=== PATIENT | female | born 1950 | race Caucasian/White ===

== ENCOUNTER 2016-07-22 16:21 | Emergency (ER) | payer OTHER ==
[2016-07-22 16:51] LABS: BASOPHILS 0.5 % (0.0-2.0); EOSINOPHILS 1.6 % (0.0-6.0); EOSINOPHILS# 0.1 X 10^3uL (0.0-0.4); HEMOGLOBIN 14.7 g/dL (12.0-16.0); LYMPHOCYTES 48.3 % (20.0-40.0); LYMPHOCYTES# 4.4 X 10^3uL (0.8-3.8); MEAN CELL VOLUME 92.7 fL (84.0-102.0); MEAN CORPUS. HGB CONCENTRATION 34.2 g/dL (32.0-36.0); MEAN CORPUSCULAR HEMOGLOBIN 31.7 pg (29.0-35.0); MEAN PLATELET VOLUME 8.6 fL (7.4-10.4); MONOCYTES 6.9 % (2.0-10.0); MONOCYTES# 0.6 X 10^3uL (0.2-1.0); NEUTROPHILS 42.7 % (54.0-75.0); NEUTROPHILS# 3.8 X 10^3uL (2.6-6.7); PLATELET COUNT 238 X 10^3uL (130-440); RED BLOOD COUNT 4.64 X 10^6uL (4.20-6.10); RED CELL DISTRIBUTION WIDTH 12.7 % (11.5-14.5); WHITE BLOOD COUNT 8.9 X 10^3uL (3.9-10.7)
[2016-07-22 17:02] LABS: BLOOD UREA NITROGEN 21 mg/dL (7-17); CALCIUM 9.1 mg/dL (8.4-10.2); CHLORIDE 106 mmol/L (98-107); CREATININE 1.1 mg/dL (0.5-1.0); EST GLOMERULAR FILTRATION RATE 52 mL/min; GLUCOSE 124 mg/dL (70-100); MAGNESIUM 1.9 mg/dL (1.6-2.3); POTASSIUM 4.1 mmol/L (3.5-5.1); SODIUM 140 mmol/L (137-145)
[2016-07-22 17:21] LABS: TROPONIN I < 0.012 ng/mL (0.00-0.034)
--- NOTE | 2016-07-22 18:56 | ER PHYSICIAN DOCUMENTATION ---
Physician Documentation [facility] Name:Mimi Webb Age:66 yrs Sex:Female :1950 Arrival Date:07/22/2016 Time:16:21 BedTrauma C Private MD:Vika Reyes ED, John Disposition: 07/22/16 18:46 Discharged to Home/Self Care. Impression: Premature Ventricular Contractions (PVC). - Condition is Good. - Discharge Instructions: Arrhythmia - PALPITATIONS. - Medical Reconciliation form form. - Follow up: Syd Meade MD; When: Tomorrow; Reason: Continuance of care. - Problem is new. - Symptoms are unchanged. HPI: 07/22 16:46 This 66 yrs old Female presents to ER via Walk In with complaints of jm Irregular Pulse. 16:46 The patient presents with a history of irregular heart beat. Context: The symptoms jm occur at rest. Onset: The symptom(s)/episode began/occurred 2 week(s) ago, and became persistent this morning. Duration: The patient or guardian reports a single episode, that is still ongoing. Modifying factors: The symptoms are alleviated by nothing. Associated signs and symptoms: Pertinent positives: lightheadedness, Pertinent negatives: chest pain, cough, fever, nausea, near-syncope, vomiting. Severity of symptoms: in the emergency department the symptoms are unchanged. The patient has not experienced similar symptoms in the past. The patient has not recently seen a physician. Pt noted irregular HR today that was consistently there, but for the past 2 weeks it has been in and out. She denies SOB or CP. She drinks about 3 cups of coffee in the AM, but has been very stressed out with work. She denies any drug use. . Historical: - Allergies: No known drug Allergies; - Home Meds: 1. Atenolol Oral 2. Synthroid Oral - PMHx: HYPOTHYROIDISM; HYPERTENSION; - PSHx: HIP SURGERY; Appendectomy; THYROIDECTOMY; - Tetanus: < 10 years. - Ebola Screening: : Patient denies exposure to infectious person. Patient denies travel to an Ebola-affected area in the 21 days before illness onset. . - Social history: Smoking status: Patient states was never smoker of tobacco. Patient/guardian denies using alcohol, marijuana. ROS: 16:50 Constitutional: Negative for fatigue, fever, malaise. 16:50 Eyes: Negative for blurry vision. 16:50 ENT: Negative for sinus congestion, sinus pain. 16:50 Cardiovascular: Positive for palpitations, Negative for chest pain. 16:50 Respiratory: Negative for cough, shortness of breath. 16:50 Abdomen/GI: Negative for abdominal pain, nausea, vomiting, diarrhea. 16:50 MS/extremity: Negative for swelling, tenderness. 16:50 Skin: Negative for diaphoresis, rash, swelling. 16:50 Neuro: Positive for dizziness, Negative for syncope, near syncope. 16:50 Psych: Negative for anxiety, depression, drug dependence, alcohol dependence. 16:50 All other systems are negative. Exam: 16:56 Constitutional: The patient appears alert, awake. 16:56 Eyes: Periorbital structures: appear normal, Pupils: equal, round, and reactive to light and accomodation. 16:56 ENT: Mouth: is normal, Voice: is normal. 16:56 Cardiovascular: Rate: bradycardic, Rhythm: irregular, Pulses: no pulse deficits are appreciated. 16:56 Respiratory: Respirations: normal, Breath sounds: are normal. 16:56 Abdomen/GI: Bowel sounds: normal, Palpation: abdomen is soft and non-tender. 16:56 Musculoskeletal/extremity: DVT Exam: No signs of deep vein thrombosis. Calves: are non-tender. 16:56 Skin: Appearance: Color: pink, no rash present. 16:56 Neuro: Mentation: is normal, Memory: is normal. 16:56 Psych: Behavior/mood is pleasant, Affect is calm. Vital Signs: 16:38 BP 171 / 67; Pulse 48; Resp 18; Pulse Ox 93% on R/A; Pain 0/10; st 16:56 BP 151 / 71; Pulse 94; Resp 22; Pulse Ox 89% ; lb 16:57 Temp 97.3; st 17:01 BP 146 / 56; Pulse 81; Resp 13; Pulse Ox 90% on R/A; lb 17:01 BP 158 / 66; Pulse 85; Resp 13; Pulse Ox 90% on R/A; lb 18:08 BP 154 / 62; Pulse 77; Resp 15; Pulse Ox 92% on R/A; lb 18:14 BP 148 / 55; Pulse 86; Resp 12; Pulse Ox 90% on R/A; lb 18:30 BP 145 / 54; Pulse 78; Resp 12; Pulse Ox 88% on R/A; lb MDM: 16:34 Patient medically screened. 16:[address] 16:56 Differential diagnosis: arrythmia, dehydration, stress disorder. Data reviewed: vital signs, nurses notes, old medical records, lab test result(s), EKG, radiologic studies, and as a result, I will initiate a consult, with a refrigerator car icer. 18:00 Medication response: The patient's symptoms are unchanged despite medication administration, lopressor. Physician consultation: Dr Julian regarding patient's condition, would like medications started. ED course: Pt w obvious bigeminy. Labs and CXR normal. I consulted Dr. Julian who said to try Lopressor 2.5mg IV and see if that helps. Unfortunately, it did not and pt really wants to go home. Dr. Reyes her PCP updated and will get her in to Cards tomorrow. . 07/22 16:55 Order name: CBC AUTO DIF, MDIF/RMOR IF IND; Complete Time: 17:29 [facility] 07/22 17:07 Order name: BASIC METABOLIC PANEL; Complete Time: 17:29 [facility] 07/22 17:07 Order name: MAGNESIUM; Complete Time: 17:29 [facility] 07/22 17:21 Order name: TROPONIN I; Complete Time: 17:29 [facility] 07/22 16:35 Order name: 12-lead EKG; Complete Time: 16:39 07/22 16:35 Order name: Iv Saline Lock; Complete Time: 16:51 07/22 16:35 Order name: Place Patient On Monitor; Complete Time: 16:39 07/22 16:35 Order name: Pulse Ox Continuous; Complete Time: 16:39 Dispensed Medications: 18:08 Drug: Metoprolol 2.5 mg; Route: IVP; Site: right antecubital; st 18:55 Follow up: Response: heart rate got better. st Signatures: Perlita Parmar, RN Oscar Martinez MD MD jm
--- NOTE | 2016-07-22 18:56 | ER NURSING DOCUMENTATION ---
Nurse's Notes [facility] Name:Mimi Webb Age:66 yrs Sex:Female :1950 Arrival Date:07/22/2016 Time:16:21 BedTrauma C Private MD:Vika Reyes Diagnosis:Premature Ventricular Contractions (PVC) Presentation: 07/22 16:35 Presenting complaint: Patient states: pt states she has been in and out of an irregular st heart beet for two weeks and has had it all day today. pt denies any pain or SOB with this. Transition of care: patient was not received from another setting of care. Care prior to arrival: None. 16:35 Acuity: NIKITA 3 st 16:35 Method Of Arrival: Walk In st Triage Assessment: 16:37 General: Appears in no apparent distress, Behavior is cooperative. Pain: Denies pain. st Cardiovascular: Capillary refill < 3 seconds Heart tones present Pulses are all present. Reports dizziness with standing. Denies Nausea and SOB Rhythm is Bigeminy. Respiratory: No deficits noted. GI: No deficits noted. Historical: - Allergies: No known drug Allergies; - Home Meds: 1. Atenolol Oral 2. Synthroid Oral - PMHx: HYPOTHYROIDISM; HYPERTENSION; - PSHx: HIP SURGERY; Appendectomy; THYROIDECTOMY; - Tetanus: < 10 years. - Ebola Screening: : Patient denies exposure to infectious person. Patient denies travel to an Ebola-affected area in the 21 days before illness onset. . - Social history: Smoking status: Patient states was never smoker of tobacco. Patient/guardian denies using alcohol, marijuana. Screenin:38 Infectious Disease Risk None. Abuse screen: Denies threats or abuse. Denies injuries st from another. pt feels safe at home. Nutritional screening: No deficits noted. Assessment: 18:40 General: pt resting quietly pt is still in bigeminy rate is a little. . st Vital Signs: 16:38 BP 171 / 67; Pulse 48; Resp 18; Pulse Ox 93% on R/A; Pain 0/10; st 16:56 BP 151 / 71; Pulse 94; Resp 22; Pulse Ox 89% ; lb 16:57 Temp 97.3; st 17:01 BP 146 / 56; Pulse 81; Resp 13; Pulse Ox 90% on R/A; lb 17:01 BP 158 / 66; Pulse 85; Resp 13; Pulse Ox 90% on R/A; lb 18:08 BP 154 / 62; Pulse 77; Resp 15; Pulse Ox 92% on R/A; lb 18:14 BP 148 / 55; Pulse 86; Resp 12; Pulse Ox 90% on R/A; lb 18:30 BP 145 / 54; Pulse 78; Resp 12; Pulse Ox 88% on R/A; lb ED Course: 16:22 Patient arrived in ED. ama 16:22 Vika Reyes DO is Private Physician. ama 16:28 EKG done per protocol. Performed by ED Staff. Shown to ED physician. st 16:35 Oscar Merchant MD is Attending Physician. al 16:35 Perlita Parmar RN is Primary Nurse. st 16:[address] 16:38 Valuables Remains with patient Patient has correct armband on for positive st identification. Placed in gown. Bed in low position. Call light in reach. Side rails up X 1. inspector set up and lay out on. Pulse ox on. NIBP on. Warm blanket given. 16:46 Inserted peripheral IV: 20 gauge in right antecubital area and blood collected. st 16:47 Patient moved to radiology. pm1 16:[address] 16:54 Patient moved back from radiology. pm1 18:09 Assisted to bathroom. pt did not get dizzy with this getting up. st 18:46 Syd Meade MD is Referral Physician. al Administered Medications: 18:08 Drug: Metoprolol 2.5 mg; Route: IVP; Site: right antecubital; st 18:55 Follow up: Response: heart rate got better. st Outcome: 18:46 Discharge ordered by . al 18:54 Discharged to home ambulatory. st 18:54 Condition: stable 18:54 Discharge instructions given to patient, Instructed on discharge instructions, follow up and referral plans. 18:55 Patient [address] ED. st 07/23 09:10 Discharge F/U Call: Unable to reach: no answer st 14:50 Discharge F/U Call: Spoke with: patient. Have you made a f/u appointment? yes What is st the one thing you feel we could do to improve? Patient's answer: pt is do ok today. She has followed up with cardiology and has a Holter monitor now. Signatures: Perlita Parmar, Oscar Martinez RN, MD MD jm McBride, Philisha pm1 Ernst Brewster, Jessie Interiano
--- NOTE | 2016-07-23 08:14 | RADIOLOGY REPORT ---
EXAM:CXR 2V [id number] INDICATION: Chest pain and irregular pulse. COMPARISON:None TECHNIQUE:PA and lateral radiographs were obtained. FINDINGS: The heart and mediastinum are normal. Central airways appear unremarkable. The lungs are cl ear. There are no pleural effusions. The chest wall is intact. There is no pneumothorax. IMPRESSION:Negative chest. Final Electronic Signature: This report was electronically signed by Eliseo Moreno MD on 07/23/2016 8:12 AM. [email or web address] /
== END 2016-07-22 18:56 | disposition home or self-care (01) ==
LOC: ER 16:21
DX: I49.3 Ventricular premature depolarization (principal); R42 Dizziness and giddiness; I10 Essential (primary) hypertension; E03.9 Hypothyroidism, unspecified; Z79.899 Other long term (current) drug therapy
CPT/HCPCS: 71020; 80048; 83735; 84484; 85025; 93005; 96374; 99285

== ENCOUNTER 2016-11-11 11:07 | Observation (INO) | payer OTHER ==
[2016-11-11 11:24] LABS: BASOPHIL# 0.1 X 10^3uL (0.0-0.1); BASOPHILS 0.3 % (0.0-2.0); EOSINOPHILS 0.7 % (0.0-6.0); EOSINOPHILS# 0.1 X 10^3uL (0.0-0.4); HEMATOCRIT 38.1 % (36.0-48.0); HEMOGLOBIN 13.1 g/dL (12.0-16.0); LYMPHOCYTES 16.7 % (20.0-40.0); MEAN CELL VOLUME 92.3 fL (80.0-100.0); MEAN CORPUS. HGB CONCENTRATION 34.3 g/dL (32.0-36.0); MEAN CORPUSCULAR HEMOGLOBIN 31.7 pg (29.0-35.0); MEAN PLATELET VOLUME 7.5 fL (7.4-10.4); MONOCYTES 7.4 % (2.0-10.0); MONOCYTES# 1.3 X 10^3uL (0.2-1.0); NEUTROPHILS 74.9 % (54.0-75.0); NEUTROPHILS# 13.2 X 10^3uL (2.6-6.7); RED BLOOD COUNT 4.13 X 10^6uL (4.20-6.10); RED CELL DISTRIBUTION WIDTH 12.7 % (11.5-14.5); WHITE BLOOD COUNT 17.7 X 10^3uL (3.9-10.7)
[2016-11-11 11:30] LABS: PLATELET COUNT 675 X 10^3uL (130-440)
[2016-11-11 11:31] LABS: BLOOD UREA NITROGEN 27 mg/dL (7-17); CALCIUM 9.2 mg/dL (8.4-10.2); CHLORIDE 98 mmol/L (98-107); EST GLOMERULAR FILTRATION RATE 59 mL/min; GLUCOSE 134 mg/dL (70-100); MAGNESIUM 2.3 mg/dL (1.6-2.3); POTASSIUM 4.1 mmol/L (3.5-5.1); SODIUM 140 mmol/L (137-145)
[2016-11-11 11:43] LABS: TROPONIN I < 0.012 ng/mL (0.00-0.034)
[2016-11-11 12:41] LABS: URINE APPEARANCE CLEAR; URINE COLOR YELLOW; URINE MUCUS NONE SEEN (Up to 25%); URINE RBC NONE SEEN (0-5/hpf)
--- NOTE | 2016-11-11 12:41 | RADIOLOGY REPORT ---
A limited single portable view of the chest is compared with prior film dated . The heart and vessels are stable and unremarkable. The right lung field is clear. A small amount of left pleural fluid is noted. No infiltrate or pneumothorax is seen. IMPRESSION: Small amount of left pleural fluid. MTDD
[2016-11-11 12:42] LABS: URINE BILIRUBIN NEGATIVE (NEGATIVE); URINE BLOOD NEGATIVE (NEGATIVE); URINE GLUCOSE NORMAL (NEGATIVE); URINE KETONE NEGATIVE (NEGATIVE); URINE LEUKOCYTE ESTERASE 25 WBC/uL (1+) (NEGATIVE); URINE NITRITE NEGATIVE (NEGATIVE); URINE PROTEIN NEGATIVE (NEG - TRACE); URINE SPECIFIC GRAVITY < or = 1.005 (0.001-1.035); URINE UROBILINOGEN 0.2mg/dL (Normal) (NEG-1mg/dL)
[2016-11-11 12:46] LABS: URINE BACTERIA NONE SEEN (<10/hpf); URINE WBC 0-4/hpf (0-4/hpf)
[2016-11-11] MEDS ORDERED: HOME MEDICATION LIST NEEDED 1 EA EACH MC ONE (13:28)
[2016-11-11] MEDS ORDERED: MAGNESIUM HYDROXIDE 30 ML UDC PO PRN (13:28)
[2016-11-11] MEDS ORDERED: POTASSIUM CHLORIDE/NS 1,000 MEQ/50,000 ML BAG IV SCH (14:00)
--- NOTE | 2016-11-11 15:15 | ER PHYSICIAN DOCUMENTATION ---
Physician Documentation [facility] Name:Mimi Webb Age:66 yrs Sex:Female :1950 Arrival Date:11/11/2016 Time:11:07 BedTrauma-C Private MD:Vika Reyes ED, Scott Disposition: 11/11/16 13:43 Admit ordered for Vika Reyes. Preliminary diagnosis are Atrial Fibrillation, Leukocytosis- Unspecified, Aortic Dissection. - Bed requested for Medical/Surgical. - Condition is Fair. - Problem is an acute exacerbation. - Symptoms have improved. 23 HR OBS Yes HPI: 11/11 11:54 This 66 yrs old Female presents to ER via Private Vehicle with complaints of sc palpitations. 12:20 The patient presents with a history of irregular heart beat, heart racing. Context: The sc symptoms occur at rest. Onset: The symptom(s)/episode began/occurred yesterday. Duration: The patient or guardian reports multiple episodes, that wax and wane. Associated signs and symptoms: Pertinent positives: chest pain, SOB. Severity of symptoms: At their worst the symptoms were moderate. The patient has not experienced similar symptoms in the past. recent ablation, aortic dissection, two icu admits, and overdose of her daughter. Historical: - Allergies: No known drug Allergies; - Home Meds: 1. hydrochlorothiazide 25 mg oral tab 1 tab once daily 2. lisinopril 20 mg oral tab 1 tab once daily 3. metoprolol tartrate 100 mg oral tab 1 tab 2 times per day 4. flecainide 50 mg oral tab 2 tabs every 12 hours - PMHx: PVC's; AROTIC DISECTION; CYSTIC THYROID; - PSHx: HIP SURGERY; HEART ABLATION; THYROIDECTOMY; - Tetanus: < 10 years. - Ebola Screening: : Patient negative for fever greater than or equal to 101.5 degrees Fahrenheit, and additional compatible Ebola Virus Disease symptoms. - Immunization history: Flu Vaccine < 1 year. - Social history: Smoking status: Patient states was never smoker of tobacco. ROS: 12:22 Constitutional: Negative for fever, chills, and weight loss. sc Eyes: Negative for injury, pain, redness, and discharge. ENT: Negative for injury, pain, and discharge. Neck: Negative for injury, pain, and swelling. Abdomen/GI: Negative for abdominal pain, nausea, vomiting, diarrhea, and constipation. Back: Negative for injury and pain. MS/Extremity: Negative for injury and deformity. Skin: Negative for injury, rash, and discoloration. 12:22 Neuro: Negative for headache, weakness, numbness, tingling, and seizure. sc 12:22 Cardiovascular: Positive for chest pain, palpitations. 12:22 Respiratory: Positive for shortness of breath. Exam: Constitutional: This is a well developed, well nourished patient who is awake, alert, and in no acute distress. Head/Face: Normocephalic, atraumatic. Eyes: Pupils equal round and reactive to light, extra-ocular motions intact. Lids and lashes normal. Conjunctiva and sclera are non-icteric and not injected. Cornea within normal limits. Periorbital areas with no swelling, redness, or edema. ENT: Nares patent. No nasal discharge, no septal abnormalities noted. Tympanic membranes are normal and external auditory canals are clear. Oropharynx with no redness, swelling, or masses, exudates, or evidence of obstruction, uvula midline. Mucous membranes moist. Neck: Trachea midline, no thyromegaly or masses palpated, and no cervical lymphadenopathy. Supple, full range of motion without nuchal rigidity, or vertebral point tenderness. No meningismus. Chest/axilla: Normal chest wall appearance and motion. Nontender with no deformity. No lesions are appreciated. Abdomen/GI: Soft, non-tender, with normal bowel sounds. No distension or tympany. No guarding or rebound. No evidence of tenderness throughout. Back: No spinal tenderness. No costovertebral tenderness. Full range of motion. Skin: Warm, dry with normal turgor. Normal color with no rashes, no lesions, and no evidence of cellulitis. Neuro: Awake and alert, GCS 15, oriented to person, place, time, and situation. Cranial nerves II-XII grossly intact. Motor strength 5/5 in all extremities. Sensory grossly intact. Cerebellar exam normal. Normal gait. 12:23 Psych: Awake, alert, with orientation to person, place and time. Behavior, mood, and sc affect are within normal limits. 12:23 Cardiovascular: Rate: tachycardic, Rhythm: irregularly irregular, Pulses: Pulses are 2+ in right radial artery and left radial artery. 12:23 Respiratory: the patient does not display signs of respiratory distress, Respirations: normal, Breath sounds: are normal, clear throughout. Vital Signs: 11:15 BP 147 / 83; Pulse 124; Resp 16; Temp 98.0(O); Pulse Ox 95% on R/A; Weight 69.4 kg; rh Height 5 ft. 5 in. (165.10 cm); Pain 0/10; 11:30 BP 109 / 92; Pulse 124; Resp 16; Pulse Ox 94% on R/A; Pain 0/10; rh 12:00 BP 121 / 70; Pulse 95; Resp 16; Pulse Ox 93% on R/A; rh 13:00 BP 125 / 73; Pulse 100; Resp 17; Pulse Ox 96% on 1 lpm NC; Pain 0/10; rh 13:32 BP 122 / 74; Pulse 96; Resp 17; Pulse Ox 96% on 2 lpm NC; Pain 0/10; rh 14:36 BP 140 / 73; Pulse 77; Resp 14; Pulse Ox 98% on 2 lpm NC; rh 11:15 Body Mass Index 25.46 (69.40 kg, 165.10 cm) rh MDM: 11:24 Patient medically screened. ms 11:25 EKG attached ms1 12:23 Differential diagnosis: arrythmia, dehydration, stress disorder. Data reviewed: vital sc signs, nurses notes, diagnostic data from outside facility, old medical records, lab test result(s), EKG, radiologic studies, and as a result, I will continue to observe the patient. Counseling: I had a detailed discussion with the patient and/or guardian regarding: the historical points, exam findings, and any diagnostic results supporting the discharge/admit diagnosis, lab results, radiology results, the need for further work-up and treatment in the hospital, the need to transfer to another facility. Physician consultation: Vika Ryees DO was called at 12:24, was contacted at 12:24, regarding admission. Admission orders: after a detailed discussion of the patient's condition and case, the admit orders are written by me. 13:33 EKG attached sc1 13:41 ECG:. Medication response: The patient's symptoms have improved. ms 14:52 EKG attached sc1 11/11 11:31 Order name: CBC AUTO DIF, MDIF/RMOR IF IND; Complete Time: 11:55 [facility] 11/11 11:55 Interpretation: Abnormal: WHITE BLOOD COUNT 17.7; PLATELET COUNT 675. ms 06 11:44 Order name: BASIC METABOLIC PANEL; Complete Time: 11:55 EDMS 08 11:55 Interpretation: Normal. ms 11/11 11:44 Order name: MAGNESIUM; Complete Time: 11:55 EDMS 11/11 11:55 Interpretation: Normal. ms 11/11 11:44 Order name: TROPONIN I; Complete Time: 11:55 [facility] 11/11 11:55 Interpretation: Normal. ms 11/11 12:45 Order name: UA W/ MICRO -CULTURE IF IND; Complete Time: 13:43 [facility] 11/11 17:03 Order name: CBC AUTO DIF, MDIF/RMOR IF IND [facility] 11/11 17:38 Order name: FERRITIN [facility] 11/11 17:38 Order name: TROPONIN I [facility] 11/11 23:11 Order name: TROPONIN I [facility] 11/12 06:54 Order name: URINE CULTURE [facility] 11/12 07:03 Order name: BASIC METABOLIC PANEL [facility] 11/12 07:03 Order name: COMPREHENSIVE METABOLIC PANEL [facility] 11/12 07:03 Order name: MAGNESIUM [facility] 11/12 08:13 Order name: CBC AUTO DIF, MDIF/RMOR IF IND [facility] 11/12 16:40 Order name: BLOOD CULTURE [facility] 11/12 16:43 Order name: BLOOD CULTURE [facility] 11/11 14:51 Order name: CHEST; [place] [id number] [facility] 11/11 11:16 Order name: EKG - 12 Lead; Complete Time: 11:22 [facility] 11/11 11:16 Order name: Cardiac Monitoring - Continuous; Complete Time: 11:22 [facility] 11/11 11:16 Order name: Oxygen Sats; Complete Time: 11:22 [facility] 11/11 12:10 Order name: EKG - 12 Lead; Complete Time: 12:10 11/11 12:12 Order name: Oxygen; Complete Time: 12:12 rh EC:41 Rate is 112 beats/min. Rhythm is irregularly irregular, A fib. QRS Cozad is Normal. NC sc interval is normal. QRS interval is normal. QT interval is normal. No Q waves. T waves are Normal. No ST changes noted. Clinical impression: Atrial Fibrillation. Interpreted by me. Reviewed by me. Dispensed Medications: 11:22 Drug: NS 0.9% 1000 ml; Route: IV; Rate: bolus; Site: left antecubital; rh 12:00 Follow up: IV Status: Completed infusion; IV Intake: 1000ml rh 12:13 Drug: NS 0.9% 1000 ml; Route: IV; Rate: bolus; Site: left antecubital; rh 15:02 Follow up: IV Status: Completed infusion; IV Intake: 1000ml Signatures: Merissa Baugh RN RN [facility] Brandon Cleary MD MD [facility] Stacy rh
--- NOTE | 2016-11-11 15:15 | ER NURSING DOCUMENTATION ---
Nurse's Notes [facility] Name:Mimi Webb Age:66 yrs Sex:Female :1950 Arrival Date:11/11/2016 Time:11:07 BedTrauma-C Private MD:Vika Reyes Diagnosis:Atrial Fibrillation;Leukocytosis- Unspecified;Aortic Dissection Presentation: 11/11 11:09 Acuity: NIKITA 2 rh 11:09 Presenting complaint: Patient states: Pt has been feeling dizzy for a few days. This AM rh at 0600 she felt that her heart was irregular and faster than normal. She took her blood pressure and it was low - 80's/40's. Pt's dizziness worsened throughout the morning and so did her fatigue. Transition of care: Home. 11:09 Method Of Arrival: Private Vehicle Triage Assessment: 11:16 General: Appears in no apparent distress, Behavior is cooperative. General: Reports rh fatigue for >3 days. Pain: Denies pain. EENT: Oral mucosa is dry. Neuro: Level of Consciousness is awake, alert, obeys commands, Oriented to person, place, time, event. Cardiovascular: Capillary refill < 3 seconds Reports fatigue, lightheadedness, Denies syncope, Chest pain PT reports chest for a few days prior to today, it was substernal. Respiratory: Airway is patent Respiratory effort is even, unlabored, Respiratory pattern is regular, symmetrical, Breath sounds are clear bilaterally. Denies shortness of breath. GI: Abdomen is non- distended Abd is soft and non tender Denies nausea. : No deficits noted. Derm: Skin is intact, is healthy with good turgor, Skin is pink, warm & dry. Historical: - Allergies: No known drug Allergies; - Home Meds: 1. hydrochlorothiazide 25 mg oral tab 1 tab once daily 2. lisinopril 20 mg oral tab 1 tab once daily 3. metoprolol tartrate 100 mg oral tab 1 tab 2 times per day 4. flecainide 50 mg oral tab 2 tabs every 12 hours - PMHx: PVC's; AROTIC DISECTION; CYSTIC THYROID; - PSHx: HIP SURGERY; HEART ABLATION; THYROIDECTOMY; - Tetanus: < 10 years. - Ebola Screening: : Patient negative for fever greater than or equal to 101.5 degrees Fahrenheit, and additional compatible Ebola Virus Disease symptoms. - Immunization history: Flu Vaccine < 1 year. - Social history: Smoking status: Patient states was never smoker of tobacco. Screenin:24 Infectious Disease Risk None. Abuse screen: Denies threats or abuse. Denies injuries rh from another. Nutritional screening: No deficits noted. Assessment: 11:23 See Triage Assessment done by same RN. rh 12:57 Reassessment: Dr Reyes in to speak with patient . rh Vital Signs: 11:15 BP 147 / 83; Pulse 124; Resp 16; Temp 98.0(O); Pulse Ox 95% on R/A; Weight 69.4 kg; rh Height 5 ft. 5 in. (165.10 cm); Pain 0/10; 11:30 BP 109 / 92; Pulse 124; Resp 16; Pulse Ox 94% on R/A; Pain 0/10; rh 12:00 BP 121 / 70; Pulse 95; Resp 16; Pulse Ox 93% on R/A; rh 13:00 BP 125 / 73; Pulse 100; Resp 17; Pulse Ox 96% on 1 lpm NC; Pain 0/10; rh 13:32 BP 122 / 74; Pulse 96; Resp 17; Pulse Ox 96% on 2 lpm NC; Pain 0/10; rh 14:36 BP 140 / 73; Pulse 77; Resp 14; Pulse Ox 98% on 2 lpm NC; rh 11:15 Body Mass Index 25.46 (69.40 kg, 165.10 cm) rh ED Course: 11:05 Notified ED Physician of patient's arrival and chief complaint. Dr. Cleary notified. rh 11:07 Patient arrived in ED. ama 11:08 Vika Reyes DO is Private Physician. ama 11:08 Stacy Pwoell is Primary Nurse. rh 11:09 Triage completed. rh 11:10 athletic monitor on. Pulse ox on. NIBP on. rh 11:12 EKG done. (by ED staff). Reviewed by Brandon Cleary MD. rh 11:18 Inserted peripheral IV: 20 gauge in left antecubital area and blood collected. BY LUZ TECH. 11:23 Brandon Cleary MD is Attending Physician. al 11:24 Port Xray Completed. preethi 11:24 Valuables Given to family. Patient has correct armband on for positive identification. rh Placed in gown. Bed in low position. Call light in reach. Side rails up X 1. 11:25 EKG attached [facility] 12:04 EKG done. (by ED staff). Reviewed by Brandon Cleary MD. 12:12 Oxygen Oxygen administration via nasal cannula @ 1L/min. rh 13:33 EKG attached [facility] 13:42 Vika Reyes DO is Admitting Physician. al 14:52 EKG done. Repeat EKG. [facility] 14:52 EKG attached [facility] Administered Medications: 11:22 Drug: NS 0.9% 1000 ml; Route: IV; Rate: bolus; Site: left antecubital; rh 12:00 Follow up: IV Status: Completed infusion; IV Intake: 1000ml rh 12:13 Drug: NS 0.9% 1000 ml; Route: IV; Rate: bolus; Site: left antecubital; rh 15:02 Follow up: IV Status: Completed infusion; IV Intake: 1000ml rh Intake: 12:00 IV: 1000ml; Total: 1000ml. rh 15:02 IV: 1000ml; Total: 2000ml. rh Outcome: 13:43 Decision to Admit by Provider. al 15:14 Admitted to Med/surg accompanied by nurse, via stretcher, with oxygen, with chart. rh 15:14 Condition: improved 15:14 Report given to LUZ FORRESTER RN 15:14 Instructed on need to admit 15:14 Patient left the ED. rh Signatures: Merissa Baugh, RN RN al1 Brandon Cleary MD MD sc Abbott, Ernst Ortgea, Stacy Espinosa
[2016-11-11] MEDS: POTASSIUM CHLORIDE/NS 20 MEQ/1,000 ML BAG IV SCH (16:04)
[2016-11-11 16:43] LABS: BASOPHIL# 0.1 X 10^3uL (0.0-0.1); BASOPHILS 0.8 % (0.0-2.0); EOSINOPHILS 0.9 % (0.0-6.0); EOSINOPHILS# 0.1 X 10^3uL (0.0-0.4); HEMATOCRIT 35.3 % (36.0-48.0); HEMOGLOBIN 12.1 g/dL (12.0-16.0); LYMPHOCYTES# 2.4 X 10^3uL (0.8-3.8); MEAN CELL VOLUME 91.9 fL (80.0-100.0); MEAN CORPUS. HGB CONCENTRATION 34.3 g/dL (32.0-36.0); MEAN CORPUSCULAR HEMOGLOBIN 31.5 pg (29.0-35.0); MEAN PLATELET VOLUME 7.6 fL (7.4-10.4); MONOCYTES 5.7 % (2.0-10.0); MONOCYTES# 0.8 X 10^3uL (0.2-1.0); NEUTROPHILS# 10.4 X 10^3uL (2.6-6.7); RED BLOOD COUNT 3.84 X 10^6uL (4.20-6.10); RED CELL DISTRIBUTION WIDTH 12.7 % (11.5-14.5)
--- NOTE | 2016-11-11 16:49 | HISTORY & PHYSICAL ---
DATE OF ADMISSION: 11/11/16 PRIMARY CARE PHYSICIAN: Vika Reyes DO. CHIEF COMPLAINT: Dizziness and irregular heart beat. HISTORY OF PRESENT ILLNESS: The patient is a 66-year-old female who has had a recently complicated medical history including development of symptomatic PVCs, who has undergone a significant cardiac evaluation and subsequently had a trial ablation procedure in October. Unfortunately she did suffer an iatrogenic Deepwater type B aortic dissection during that procedure and was monitored in the hospital and felt that she could be medically managed. She did have a followup admission to [facility] on 11/04 to 11/07 related to change in chest pain and again was just medically managed at that time. The patient was discharged home on 2016 with ongoing chest pain which she describes about a 6-8 kind of substernal and down into her abdomen where she has been using [place] once or twice a day to help with this pain. Her medications were adjusted and it was encouraged for her to have a blood pressure of less than 120 systolic. Today, however, she woke up around 6 a.m. and was significantly dizzy and noticed some different fluttering in her chest. She took her blood pressure and it was around 80/40 and noted irregular heart rate so she called her [facility] cardiology office and they recommended that she come to the emergency room for evaluation. The patient did arrive here at our emergency room and was noted to be in atrial fibrillation/atrial flutter which is a somewhat new diagnosis for the patient. They did give her a 2 liter fluid bolus and her blood pressures improved and her heart rate continues to be in the 90s- 110s-120s. After fluid bolus her symptoms did improve as far as dizziness but she still feeling the palpitations and is not quite back at her previous baseline. I did discuss the case with Dr. Venegas who is supervisor carton and can supply for Cardiology today and especially with her recent ICU stay and multiple stays at [facility], asked if transfer would be better suited for the patient versus monitoring here without Cardiology evaluation tonight. He did feel that since her vitals were stable and her symptoms had improved we could just trial dose adjustment in her flecainide and monitor and can have ongoing outpatient management. Interesting, however, the patient was noted to have an elevated white blood count as well as elevated platelets. In her hospitalization she was noted to have a URI with cough and that is what they felt her leukocytosis was related to , although her levels were around 11-13. Today it is 17.7 without any specific cause. She did have recent large left groin hematoma and the aortic dissection which could be potential causes of the thrombocytosis and leukocytosis. PAST MEDICAL HISTORY: Includes 1. 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 2. Hypertension with her new goal blood pressure of less than 120. 3. Hypothyroidism. 4. 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 5. Paroxysmal atrial fibrillation that had resolved with last admission 11/04 to , although now back. 6. Popliteal artery thrombosis. 7. Left groin hematoma. 8. Chest pain related to aortic dissection. 9. Acute grief reaction. The patients daughter of drug overdose on . ALLERGIES: No known drug allergies. FAMILY HISTORY: Grandmother with type 1 diabetes. Her mother at age 70 related to colon cancer and her father had a valve replacement. SOCIAL HISTORY: The patient is a nonsmoker. She drinks alcohol rarely. She had 2 daughters. Her youngest daughter Anh just recently of drug overdose early and was notified on 11/07/16. Her older daughter is with her today. 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 PAST SURGICAL HISTORY: Includes 1. Thyroidectomy. 2. Hip replacement bilateral. 3. Appendectomy. 4. Tonsillectomy. HOME MEDICATION LIST: Includes Acetaminophen 2 tablets by mouth every 6 hours as needed. Hydrochlorothiazide 25 mg daily. Hydrocodone acetaminophen 10/325 0.5-1 tablet every 6 hours as needed for pain. Lisinopril 20 mg daily. Amlodipine 5 mg daily. Metoprolol 100 mg twice daily. Aspirin 81 mg daily. Atorvastatin 40 mg daily. Flecainide 50 mg twice daily. Synthroid 50 mcg. REVIEW OF SYSTEMS GENERAL: The patient had been feeling better but she denied any fevers, chills. Positive for weight loss related to recent health issues HEENT: She has had some visual disturbances she relates to the flecainide. No runny nose. No congestion. No sore throat. Denies any neck pain. ABDOMEN: No pain. No nausea or vomiting. Decreased appetite CARDIOVASCULAR: She does have chest pain and palpitations. She also notes her chest pain radiates to her back. RESPIRATORY: Intermittent shortness of breath. SKIN: She has obvious bruising from previous procedures. NEUROLOGIC: She denies any headache, weakness, numbness, tingling. PHYSICAL EXAMINATION VITALS: In the emergency room were noted to be temperature of 98.0, blood pressure initially 147/83, pulse of 124, respirations 16. After my evaluation with the patient her blood pressure was 122/74, pulse of 96, respirations 17, 96 % on 2 liters. GENERAL: The patient appears comfortable. Well developed. She is awake, alert. No acute distress. Actually in better health then what I anticipated. HEENT: Normocephalic/atraumatic. Pupils are reactive. Oropharynx is clear. NECK: Supple. CHEST: Normal appearance. Nontender. She is irregularly irregular. RESPIRATORY: Slight crackles on the left side but otherwise clear to auscultation. ABDOMEN: Soft, nontender, nondistended. SKIN: Warm. No edema noted. She does have significant bruising and swelling over the left groin site. Per patient and daughter this is significantly improved from previous. NEUROLOGIC: She is awake and alert. She moves extremities without difficulties. Grossly nonfocal cranial nerves. PSYCHIATRIC: She is again alert and oriented times 3. She has appropriate mood and affect even when discussing the recent of her daughter. She denies any significant depression. EKG: The patient had 3 separate EKGs in the emergency department all noting rate in the 110s to irregularly irregular atrial fibrillation. No significant ST changes. LABS: The patient has a CBC which showed a white count of 17.7, hemoglobin 13.1 , hematocrit 38.1, platelets of 675. A BMP showed sodium 140, potassium 4.1, chloride 98, bicarbonate 25, BUN 27, creatinine 1.0, glucose 134, calcium 92, magnesium 2.3. Troponin of less than 0.012. Chest x-ray which showed a small left pleural effusion. The patient states she previously had bilateral. ASSESSMENT AND PLAN: This is a 66-year-old female with recently complicated cardiac history, who is presenting today with persistent atrial fibrillation and associated dizziness but also a leukocytosis of unclear etiology. 1. Atrial fibrillation/flutter. The patient with known history of symptomatic PVCs. The patient has had 2 recent hospitalizations at [facility] related to these symptomatic PVCs and unfortunately developed an aortic dissection during attempt at ablation for the PVCs. The atrial fibrillation was noted during one of the hospitalizations but not during her most recent one. Currently her rate is slightly elevated in the 90s to 120s but blood pressure is holding steady at this time after fluid rehydration. Discussed with supervisor carton and can supply Cardiology and they did not want the patient transferred to [facility] as she was otherwise stable. They recommended increasing her flecainide to 100 mg twice a day and will ask Cardiology to follow with the patient tomorrow and help set up further recommendations and outpatient workup. The patient is significantly frustrated regarding all these multiple cardiac issues and complications. 2. Chest pain. The patient has had chest pain since her last hospitalization which she finds pretty significant 6-01/13 where she uses intermittent [place] for. She did mention she took an ibuprofen last night and her pain did resolve although with her aortic dissection I would not recommend ongoing NSAID therapy. She does take a daily baby aspirin. Will continue this at this time and be monitored with serial troponins and EKGs. 3. Aortic dissection. Again this was iatrogenic dissection that is currently being medically managed. She has had significant cardiac and cardiothoracic surgery followup with multiple CAT scans at [facility] recently. At this time the patient does not feel symptoms are different. 4. Leukocytosis. The patient was noted to have a white blood cell count of 17.7 today and she did have some slight leukocytosis with her last hospitalization but only in the 11-13 range. At that time it was felt related to a URI although the patient denies any significant symptoms of infection. Did have a urine and a urine culture and will add blood cultures just with recent hospitalizations and procedures. Could be reactive and dehydration. Will repeat this afternoon as well as in the morning to monitor. 5. Thrombocytosis. Again this seems to be a new problem as her labs from last hospitalization were normal. Could very well be related to her recent procedure , thrombosis and hematoma. The patient is slightly at increased risk of coagulation with her thrombocytosis but with her aortic dissection we are somewhat limited with anticoagulation and will need to closely monitor. Repeat order for this afternoon. 6. Hypertension. Currently stable. Will continue her home medications with the exception of increasing flecainide per Cardiology recommendations. Her hypertension goal was less than 120 systolic. Will try to maintain less than 130 at this time due to her symptomatic dizziness this morning. 7. Left groin hematoma. This is related to ablation procedure. Per patient and daughter this has significantly improved but could be potential source for the leukocytosis and thrombocytosis. 8. Hypothyroidism. Will continue home medications. 9. Grief reaction. The patient did find out just recently that her youngest daughter who has had a long struggle with addiction by overdose. She seems to be handling the news well and she is here today with her older daughter. She denies any need for additional assistance at this time. Copy to Dr. Meade, Dr. Lucas, Dr. Preciado Addendum: after dictation patient has return to regular rate and rhythm (after 9 hours of irregularity, patient is feeling much better). She is thus requesting hold of changing flecinide dose and will be kept on 50mg bid until cardiology consult tomorrow. also was noted by nursing staff to have white patches in her mouth consistent with thrush- will start treatment. MTDD
[2016-11-11 17:01] LABS: WHITE BLOOD COUNT 13.8 X 10^3uL (3.9-10.7)
[2016-11-11 17:02] LABS: LYMPHOCYTES 17.1 % (20.0-40.0); NEUTROPHILS 75.5 % (54.0-75.0); PLATELET COUNT 527 X 10^3uL (130-440)
[2016-11-11 17:36] LABS: FERRITIN 543 ng/mL (11-264)
[2016-11-11 17:37] LABS: TROPONIN I < 0.012 ng/mL (0.00-0.034)
[2016-11-11] MEDS: ACETAMINOPHEN 325 MG TABLET PO PRN (20:23)
[2016-11-11] MEDS: CLOTRIMAZOLE 10 MG TROCHE MUCOUS MEM SCH (20:24)
[2016-11-11] MEDS: FLECAINIDE ACETATE 50 MG PO SCH (20:32)
[2016-11-11] MEDS ORDERED: POLYETHYLENE GLYCOL 3350 17 GM POWD.PACK PO ONE (20:48)
[2016-11-12] MEDS: POTASSIUM CHLORIDE/NS 20 MEQ/1,000 ML BAG IV SCH (00:35)
[2016-11-12] MEDS: ACETAMINOPHEN 325 MG TABLET PO PRN (02:57)
[2016-11-12] MEDS: CLOTRIMAZOLE 10 MG TROCHE MUCOUS MEM SCH ×3 (02:59→14:09)
[2016-11-12] MEDS ORDERED: LEVOTHYROXINE 50 MCG TABLET PO SCH (06:30)
[2016-11-12 07:02] LABS: A/G RATIO 0.8; ALBUMIN 3.4 g/dL (3.5-5.0); ALKALINE PHOSPHATASE 155 U/L (38-126); ALT 55 U/L (9-52); AST 50 U/L (14-36); BILIRUBIN, TOTAL 1.2 mg/dL (0.2-1.3); BLOOD UREA NITROGEN 10 mg/dL (7-17); CALCIUM 8.4 mg/dL (8.4-10.2); CHLORIDE 105 mmol/L (98-107); EST GLOMERULAR FILTRATION RATE > 60 mL/min; GLUCOSE 114 mg/dL (70-100); MAGNESIUM 1.9 mg/dL (1.6-2.3); POTASSIUM 4.3 mmol/L (3.5-5.1); SODIUM 143 mmol/L (137-145); TOTAL PROTEIN 7.8 g/dL (6.3-8.2)
[2016-11-12 08:07] LABS: BASOPHIL# 0.1 X 10^3uL (0.0-0.1); BASOPHILS 0.5 % (0.0-2.0); EOSINOPHILS 1.7 % (0.0-6.0); EOSINOPHILS# 0.2 X 10^3uL (0.0-0.4); HEMATOCRIT 33.3 % (36.0-48.0); HEMOGLOBIN 11.4 g/dL (12.0-16.0); LYMPHOCYTES# 2.4 X 10^3uL (0.8-3.8); MEAN CELL VOLUME 91.7 fL (80.0-100.0); MEAN CORPUS. HGB CONCENTRATION 34.2 g/dL (32.0-36.0); MEAN CORPUSCULAR HEMOGLOBIN 31.4 pg (29.0-35.0); MEAN PLATELET VOLUME 7.8 fL (7.4-10.4); MONOCYTES 8.2 % (2.0-10.0); MONOCYTES# 1.1 X 10^3uL (0.2-1.0); NEUTROPHILS 71.6 % (54.0-75.0); NEUTROPHILS# 9.3 X 10^3uL (2.6-6.7); RED BLOOD COUNT 3.64 X 10^6uL (4.20-6.10); WHITE BLOOD COUNT 13.1 X 10^3uL (3.9-10.7)
--- NOTE | 2016-11-12 08:33 | DC SUMMARY: IM Note ---
Discharge Summary: IM/Peds Provider: Date of Admission: 11/11/16 Admitting Provider: MEDHAT CELESTIN Attending Provider: MEDHAT CELESTIN Discharging Provider: MEDHAT CELESTIN Primary Care Provider: Discharge Date: 11/12/16 Consults: Cardiology- Dr. Sanz - Diagnosis (1) Atrial fibrillation and flutter Status: Acute (2) Ventricular bigeminy Status: Chronic (3) Aortic dissection following procedure Status: Acute (4) Chest pain Status: Acute (5) Leukocytosis Status: Acute (6) Elevated ferritin Status: Acute (7) Thrombocytosis Status: Acute (8) Transaminitis Status: Acute (9) Hypertension Status: Chronic (10) Hypothyroid Status: Chronic (11) Groin hematoma Status: Acute (12) Anemia Status: Acute Hospital Course: Ms. Webb is a 66 yo F with recent complicated cardiac history including aortic dissection and left groin hematoma after attempted cardiac ablation procedure mid October. She has been hospitalized twice at [facility] related to these issues and most recently discharged on 11/07 with plan for medical managment and blood pressure control. On 11/11 morning however she woke with dizziness and noted irregular heart rate, was recommended by heart center or [facility] to come to ED for evaluations/fluids. Patient was noted to be in Atrial fibrillation/flutter with heart rate in the 90s-120s. Her dizziness improved after IV hydration and we admitted her for observation regarding the new a fib and leukocytosis. Prior to trialing the dose increase of flecainide from 50mg twice daily to 100mg twice daily, patient returned to sinus rhythm and requesting not to adjust medication. However early this morning she had about 45 min return of bigeminy (she does notice the irregularity). Transitioned back to sinus rhythm without intervention. Cardiology evaluation this morning with recommendation to increase the flecainide dose, continue metoprolol as is, hold amlodipine and monitor blood pressure- goal less than 120 systolic. Will also decrease dose of HCTZ (12.5mg) In regards to leukocytosis and thrombocytosis- this is most likely related to recent procedures/inflammation and dehydration. WBC improved from 17.8 to 13 with just IV fluids. Was noted to have thrush on exam and started on clotrimazole troches. Platelets are still slighlty elevated but returning to more normal values without specific intervention. Was noted to have slight anemia this morning (likely fluid related). New today was some mild transaminitis- patient has had multiple imaging and labs at [facility] recently- on review had similar elevations with last admission at [facility]. To recheck as outpatient for monitoring. - Time Spent with Patient Total time spent providing and/or coordinating discharge services: Time with patient DS: Greater than 30 minutes Discharge - Patient/Caregiver Discharge Instructions Activity Level: As tolerated- continue to lift with precautions related to aortic dissection Diet: Regular- please increase your fluid intake to avoid further dehydration Additional Instructions: Instructions from Dr. Sanz- increase flecainide to 100mg bid, continue current metoprolol dose. 1/2 the hydrochlorothiazide and stop amlodipine. contact cards if noting blood pressure elevating or heart rate too low. Rx for clotrimazole lozenge sent to [facility]. Follow up: DAVID AWAD [] - 11/29/16 (already scheduled) SU CONLEY MD [MD] - 7 Days NEHA NAQVI [] - 7 Days (will need to reschedule) MEDHAT CELESTIN DO [Primary Care Provider] - 11/19/16 11:30 am (already has appt set up) Overall discharge status: patient is back to baseline, stable Print Language: ESTONIAN Disposition: HOME, SELF-CARE Discharge Summary Data - Medication History Medication History: Home Medications Flecainide Acetate 50 mg PO BID 11/11/16 Hydrochlorothiazide [Hydrodiuril*] 25 mg PO DAILY 11/11/16 Levothyroxine [Synthroid*] 50 mcg PO DAILY 11/11/16 Lisinopril [Prinivil*] 20 mg PO DAILY 11/11/16 hydroCODone/APAP 10/325 MG [[place] 10-325 Tablet*] 1 tab PO QID PRN 11/11/16 metoprolol TARTRATE [Metoprolol Tartrate*] 100 mg PO BID 11/11/16 Inpatient Medications 11/11/16 16:00 Potassium Chloride/Ns [KCl 20 Meq in Ns 1L] 20 meq in 1,000 ml IV .CONT 11/11/16 16:50 hydroCODone/APAP 10/325 MG [[place]] 1 tab PO Q6H PRN 11/11/16 18:54 Acetaminophen [Tylenol] 650 mg PO Q6H PRN 11/11/16 20:00 Clotrimazole [Mycelex] 10 mg MUCOUS MEM 5 TIMES DAILY 11/11/16 21:00 Flecainide Acetate [Flecainide Acetate] 50 mg PO BID metoprolol TARTRATE [Lopressor] 100 mg PO BID 11/12/16 06:30 Levothyroxine [Synthroid] 50 mcg PO BEFORE BREAKFAST 11/12/16 09:00 Hydrochlorothiazide [Hydrodiuril] 25 mg PO DAILY Lisinopril [Prinivil] 20 mg PO DAILY aspirin EC [Ecotrin 81 mg] 81 mg PO DAILY Procedures and tests throughout hospitalization: Completed Lab Orders 11/12/16 06:30 CBC AUTO DIF, MDIF/RMOR IF IND [HEM] Routine Pending Orders 11/11/16 16:00 Potassium Chloride/Ns [KCl 20 Meq in Ns 1L] 20 meq in 1,000 ml IV .CONT 11/11/16 16:50 hydroCODone/APAP 10/325 MG [[place]] 1 tab PO Q6H PRN 11/11/16 18:54 Acetaminophen [Tylenol] 650 mg PO Q6H PRN 11/11/16 20:00 Clotrimazole [Mycelex] 10 mg MUCOUS MEM 5 TIMES DAILY 11/11/16 21:00 Flecainide Acetate [Flecainide Acetate] 50 mg PO BID metoprolol TARTRATE [Lopressor] 100 mg PO BID 11/12/16 06:30 Levothyroxine [Synthroid] 50 mcg PO BEFORE BREAKFAST 11/12/16 09:00 Hydrochlorothiazide [Hydrodiuril] 25 mg PO DAILY Lisinopril [Prinivil] 20 mg PO DAILY aspirin EC [Ecotrin 81 mg] 81 mg PO DAILY Labs on day of discharge: Labs from last 24 hours 11/12/16 11/12/16 11/11/16 06:30 06:00 22:40 WBC 13.1 H RBC 3.64 L Hgb 11.4 L Hct 33.3 L MCV 91.7 MCH 31.4 MCHC 34.2 RDW 13.0 Plt Count 466 H MPV 7.8 Neutrophils % 71.6 Lymphocytes % 18.0 L Eosinophils % 1.7 Basophils % 0.5 Neutrophils # 9.3 H Lymphocytes # 2.4 Monocytes 8.2 Monocytes # 1.1 H Eosinophils # 0.2 Basophils # 0.1 Sodium 143 Potassium 4.3 Chloride 105 Carbon Dioxide 25 BUN 10 D Creatinine 0.6 GFR Calculation > 60 Glucose 114 H Calcium 8.4 Magnesium 1.9 Ferritin Total Bilirubin 1.2 D AST 50 H ALT 55 H Alkaline Phosphatase 155 H Troponin I < 0.012 Total Protein 7.8 Albumin 3.4 L Albumin/Globulin Ratio 0.8 11/11/16 16:20 WBC 13.8 H RBC 3.84 L Hgb 12.1 Hct 35.3 L MCV 91.9 MCH 31.5 MCHC 34.3 RDW 12.7 Plt Count 527 H MPV 7.6 Neutrophils % 75.5 H Lymphocytes % 17.1 L Eosinophils % 0.9 Basophils % 0.8 Neutrophils # 10.4 H Lymphocytes # 2.4 Monocytes 5.7 Monocytes # 0.8 Eosinophils # 0.1 Basophils # 0.1 Sodium Potassium Chloride Carbon Dioxide BUN Creatinine GFR Calculation Glucose Calcium Magnesium Ferritin 543 H Total Bilirubin AST ALT Alkaline Phosphatase Troponin I < 0.012 Total Protein Albumin Albumin/Globulin Ratio - Impressions Improvement in leukocytosis and thrombocytosis but still slightly elevated. New mild transaminitis. IM: Discharge Physical Exam - I&O/Vital Signs I&O: Intake & Output 11/11/16 11/12/16 11/12/16 21:59 05:59 13:59 Intake Total 746 1815 Output Total 1375 Balance 746 440 Weight 65.459 kg 66.1 kg Intake: IV 446 1205 Left Forearm 446 1205 Oral 300 610 Output: Urine 1375 Other: Urine Appearance Clear Clear Urine Color Yellow Yellow Voiding Method Toilet Toilet # Voids 1 4 Vital Signs: Last Vital Signs Temp 36.7 C 11/12/16 05:00 Pulse 38 L 11/12/16 05:00 Resp 16 11/12/16 05:00 BP 140/60 11/12/16 05:00 Pulse Ox 95 11/12/16 05:00 Oxygen Flow Rate 1 Oxygen Delivery Method Nasal Cannula - Constitutional General appearance: Present: cooperative. Absent: acute distress - Head Head exam: Present: normal inspection, normocephalic - Eye Eye exam: Present: normal appearance. Absent: conjunctival injection - ENT ENT exam: Present: mucous membranes moist, normal oropharynx, other (slight improvement in appearance for white patches on bilateral inner cheeks) - Neck Neck exam: Present: normal inspection - Respiratory Respiratory exam: Present: CTAB. Absent: accessory muscle use - Cardiovascular Cardiovascular exam: Present: RRR (no irregularity noted- did review EKG which clearly demonstrated bigeminy this morning). Absent: systolic murmur - GI/Abdominal GI/Abdominal exam: Present: normal bowel sounds, soft. Absent: tenderness - Extremities Exam Extremities exam: Present: other (left groin hematoma). Absent: edema - Back Exam Back exam: Present: normal inspection - Neurological Exam Neurological exam: Present: alert, oriented X3 - Psychiatric Psychiatric exam: Present: normal affect, normal mood (appears to be handling all recent stressors very well- health issues, temporary custody of grandaughter , and recent of daughter) - Allied Health Notes Allied health notes reviewed: nursing
[2016-11-12] MEDS ORDERED: LISINOPRIL 20 MG TABLET PO SCH (09:00)
[2016-11-12] MEDS ORDERED: HYDROCHLOROTHIAZIDE 25 MG TABLET PO SCH (09:00)
[2016-11-12] MEDS: FLECAINIDE ACETATE 50 MG PO SCH (09:13)
[2016-11-12 12:07] VITALS: O2SAT 91
[2016-11-12 15:32] VITALS: BP 139/73; PULSE 77; RESP 24; TEMP 98.4
--- NOTE | 2016-11-12 15:37 | CONSULTATION ---
DATE OF CONSULTATION: 11/12/16 REASON FOR CONSULTATION: Atrial fibrillation, hypotension. CONSULTING PHYSICIAN: Dr. Reyes. HISTORY OF PRESENT ILLNESS: A 66-year-old female with a history of PVCs, hypertension, recent PVC ablation complicated by a type B aortic dissection, paroxysmal atrial fibrillation, was admitted with dizziness and palpitations. She also noted a low blood pressure at home 80/40. Since her procedure she has had constant chest pain that will fluctuate in intensity randomly up to a 6/10. It is a sharp, focal, left substernal pain that radiates to her back. She denies shortness of breath, PND, lower extremity edema. She has had some intermittent palpitations. She reports dizziness. PAST MEDICAL HISTORY 1. PVCs. 2. Hypertension. 3. Hypothyroidism. 4. Type B aortic dissection, iatrogenic. 5. Popliteal artery thrombosis. 6. Paroxysmal atrial fibrillation. OUTPATIENT MEDICATIONS: Reviewed. ALLERGIES: Unknown. SOCIAL HISTORY: She does not smoke. She has minimal caffeine and alcoholintake. FAMILY HISTORY: Negative for premature coronary artery disease. REVIEW OF SYSTEMS GENERAL: Reports fatigue. HEENT: Denies headache. Eyes: Denies blurry vision. RESPIRATORY: Denies cough. GASTROINTESTINAL: Denies abdominal pain. GENITOURINARY: Denies dysuria. MUSCULOSKELETAL: Denies arthralgias. NEUROLOGIC: Denies numbness. HEMATOLOGY: Denies easy bruising. ENDOCRINE: Denies temperature changes. PSYCHIATRIC: Denies mood changes. PHYSICAL EXAMINATION VITAL SIGNS: Reviewed. GENERAL: Well-nourished, well-developed, no acute distress. Speaking in complete sentences without difficulty. HEENT: Normal. Eyes: Normal. NECK: Jugular venous pressure 8 cm. No carotid bruits. HEART: Regular rate and rhythm. No murmurs, rubs or gallops. LUNGS: Clear to auscultation bilaterally. ABDOMEN: Nondistended. EXTREMITIES: No edema, +2 radial pulses. Normal tone. SKIN: No rashes. NEUROLOGIC: Alert. LABORATORY DATA: Hemoglobin 11.4, potassium 4.3, creatinine 0.6. Troponin negative times 2. EKG: Reviewed. First EKGs showed possible atrial flutter with rapid rate. She then converted to normal sinus rhythm with no acute ST changes and also had an EKG showing ventricular bigeminy. CHEST X-RAY: Left pleural effusion. IMPRESSION 1. Type B aortic dissection, iatrogenic. 2. Chest pain secondary to number one. 3. PV 4. Hypertension. 5. Paroxysmal atrial fibrillation and atrial flutter. 6. Popliteal artery thrombosis. PLAN: She has spontaneously converted back to normal sinus rhythm and will be discharged on a higher dose of flecainide 100 mg daily. She will continue metoprolol 100 mg twice daily. She is currently not a candidate for anticoagulation given the recent aortic dissection. For her hypotension, she will be off amlodipine and will decrease her hydrochlorothiazide to 12.5 mg daily. She knows to maintain her systolic blood pressure between 100 and 120 and will call our office if she is not reaching these goals. She will have close followup in our Cardiology Clinic. From a cardiac standpoint she can be discharged home today. POORNIMA
== END 2016-11-12 13:22 | disposition home or self-care (01) ==
LOC: ER 11:07 → IN 15:10
PROVIDERS: ADMIT Family Medicine; ATTEND Family Medicine
DX: I48.0 Paroxysmal atrial fibrillation (principal); I10 Essential (primary) hypertension; I49.3 Ventricular premature depolarization; F43.20 Adjustment disorder, unspecified; T85.868A Thrombosis due to other internal prosthetic devices, implants and grafts, initial encounter; Z98.890 Other specified postprocedural states; R74.0 Nonspecific elevation of levels of transaminase and lactic acid dehydrogenase [LDH]; E03.8 Other specified hypothyroidism; R00.8 Other abnormalities of heart beat; L76.31 Postprocedural hematoma of skin and subcutaneous tissue following a dermatologic procedure; D64.9 Anemia, unspecified; D72.829 Elevated white blood cell count, unspecified; Z79.899 Other long term (current) drug therapy
CPT/HCPCS: 36415; 71010; 80048; 80053; 81001; 82728; 83735; 84484; 85025; 87040; 87086; 93005; 93041; 96360; 96361; 99285; G0378; J3480